=== PATIENT | male | born 1975 | race Caucasian/White ===

== ENCOUNTER 2016-08-15 10:06 | Emergency (ER) | payer SELFPAY ==
--- NOTE | 2016-08-15 12:09 | UC ---
Skin Complaint HPI - HPI Summary HPI Summary: Bilateral leg swelling at times, with onset of a patch of erythema and tenderness yesterday on the right foreleg. Had a fever yesterday, with persistence today. Today has increasing erythema of the right leg, with increasing tenderness. history of morbid obesity, no history of diabetes, with history of venous stasis. Lives in [place], family is here. 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 Onset/Duration: Gradual Onset, Lasting Days - 2 Timing: Constant Onset Severity: Moderate Current Severity: Severe Location: Discrete - right lower extremity. Aggravating: Touch Alleviating: Nothing Associated Signs & Symptoms: Positive: Nausea - decreased appetite. - Allergy/Home Medications Allergies/Adverse Reactions: Allergies Allergy/AdvReac Type Severity Reaction Status Date / Time No Known Allergies Allergy Verified 08/15/16 11:18 Home Medications: Home Medications Bupropion XL* [Wellbutrin XL *] 150 mg PO BID 08/15/16 [History Confirmed ] Cetirizine* [ZyrTEC 10 MG TAB*] 10 mg PO DAILY 08/15/16 [History Confirmed 08/15] Esomeprazole(NF) [NEXium(NF)] 20 mg PO DAILY 08/15/16 [History Confirmed ] Lisinopril/HCTZ 20/12.5(NF) [Zestoretic 20/12.5(NF)] 2 tab PO DAILY 08/15/16 [ History Confirmed 08/15/16] Naltrexone (NF) 25 mg PO BID 08/15/16 [History Confirmed 08/15/16] Naproxen TAB* [Naprosyn 250 mg TAB*] 250 mg PO Q8H PRN 08/15/16 [History Confirmed 08/15/16] amLODIPine TAB* [Norvasc 5 mg TAB*] 10 mg PO DAILY 08/15/16 [History Confirmed 08/15/16] Review of Systems Constitutional: Fever, Other - currently on a weight loss program, with loss of 20 pounds since beginning naltrexone. Skin: Other - progressive erythema Eyes: Negative Musculoskeletal: Calf Tenderness - on the right., Edema All Other Systems Reviewed And Are Negative: Yes PMH/Surg Hx/FS Hx/Imm Hx - Additional Past Medical History Additional PMH: morbid obesity. Cardiovascular History: Hypertension - Surgical History Surgical History: Yes Surgery Procedure, Year, and Place: ear tubes - Social History Alcohol Use: None Substance Use Type: None Smoking Status (MU): Never Smoked Tobacco Physical Exam Triage Information Reviewed: Yes Appearance: Pain Distress - moderate, Obese Vital Signs: Initial Vital Signs Temp 99.8 F 08/15/16 11:19 Pulse 117 08/15/16 11:19 Resp 16 08/15/16 11:19 BP 109/67 08/15/16 11:19 Pulse Ox 95 08/15/16 11:19 Vital Signs Reviewed: Yes Eye Exam: Normal ENT Exam: Normal ENT: Positive: Pharynx normal Neck: Positive: Supple, Nontender, No Lymphadenopathy Respiratory: Positive: Lungs clear, Normal breath sounds Cardiovascular: Positive: RRR, No Murmur Abdomen Description: Positive: Nontender, No Organomegaly Musculoskeletal: Positive: Other: - right leg with erythema and induration from the ankle to the tibial plateau anteriorly, and to the mid calf posteriorly. Calf is tense and tender with postive Maria Elena's sign. + lymphangitic spread posteriorly to the popliteal fossa. Neurological Exam: Normal Neurological: Positive: Alert, Muscle Tone Normal Psychological Exam: Normal Skin Exam: Other - erythema and edema as above. Course/Dx - Course Course Of Treatment: transferred to ER - Differential Diagnoses - Skin Complaint Differential Diagnoses: Cellulitis, Contact Dermatitis, Other - deep venous thrombosis - Diagnoses Provider Diagnoses: cellulitis with lymphangitis right leg. possible DVT right leg - Physician Notification/Consults Discussed Patient Care With: [facility] Time Discussed With Above Provider: 12:25 Instructed by Provider To: Transfer Discharge - Discharge Plan Condition: Stable Disposition: AGAINST MEDICAL ADVICE Referrals: Non Staff,Doctor [Primary Care Provider] -
== END 2016-08-15 12:25 | disposition left against medical advice (07) ==
LOC: UCCORT 10:06
DX: L03.115 Cellulitis of right lower limb (principal); I89.1 Lymphangitis; R60.0 Localized edema; R11.0 Nausea; I10 Essential (primary) hypertension; E66.9 Obesity, unspecified
CPT/HCPCS: 99203; G0463